=== PATIENT | male | born 1940 | race Caucasian/White ===

== ENCOUNTER 2021-01-11 08:00 | Inpatient (IN) | payer OTHER ==
[~2021-01-11] VITALS: Ht 177.8 cm; Wt 81.6 kg
[2021-01-11 10:13] LABS: BASOPHILS % (AUTO) 0.5 % (0.0-5.0); HEMATOCRIT 39.4 % (42-54); LYMPHOCYTES % (AUTO) 13.1 % (21.0-51.0); MEAN CORPUSCULAR HEMOGLOBIN 30.7 pg (27.0-33.0); MEAN CORPUSCULAR HGB CONC 32.2 g/dL (32.0-36.0); MEAN CORPUSCULAR VOLUME 95.2 fL (79-99); MONOCYTES % (AUTO) 10.6 % (3.0-13.0); NEUTROPHILS % (AUTO) 72.3 % (40.0-77.0); PLATELET COUNT (AUTO) 307 K/uL (130-400); RED BLOOD CELL COUNT(AUTO) 4.14 MIL/uL (4.50-6.20); WHITE BLOOD COUNT (AUTO) 7.6 K/uL (4.8-10.8)
[2021-01-11 10:25] LABS: INR 1.1 (0.85-1.15); PROTHROMBIN TIME 11.9 SEC (9.6-11.6)
[2021-01-11 15:23] VITALS: BP 138/91
[2021-01-11] MEDS ORDERED: LISI5TAB21 PO (16:06)
[2021-01-11] MEDS ORDERED: [UNRECOGNIZED DRUG - OTHER] SQ (16:06)
[2021-01-11] MEDS ORDERED: GABA600T10 PO (16:06)
[2021-01-11] MEDS ORDERED: LEVO5TAB13 PO (16:06)
[2021-01-11] MEDS ORDERED: OMEP40CA21 PO (16:06)
[2021-01-11] MEDS ORDERED: ATOR-2 PO (16:06)
[2021-01-11] MEDS ORDERED: LEVO125C4 PO (16:06)
[2021-01-11] MEDS ORDERED: DEXT1DRO8 OP (16:06)
[2021-01-11] MEDS ORDERED: METF-446 PO (16:06)
[2021-01-11] MEDS ORDERED: [UNRECOGNIZED DRUG - OTHER] TP (16:06)
[2021-01-11] MEDS ORDERED: FLUT16H NASAL (16:06)
[2021-01-14] VITALS (20 sets, daily range): BP systolic 108–137; BP diastolic 61–96
[2021-01-14] MEDS ORDERED: 0.9%NACL 1000ML 1,000 ML IV ONE (09:49)
[2021-01-14] MEDS: CEFAZOLIN SODIUM 1 GM VIAL IVP SCH ×3 (10:39→19:14)
[2021-01-14] MEDS ORDERED: CEFAZOLIN SODIUM 1 GM VIAL ONE (11:15)
[2021-01-14] MEDS ORDERED: TRANEXAMIC ACID 1000MG/10ML ONE ×2 (11:15→15:29)
[2021-01-14] MEDS ORDERED: MIDAZOLAM HCL 1 MG/ML 2ML VIAL ONE (11:53)
[2021-01-14] MEDS ORDERED: PROPOFOL 10 MG/ML 20ML VIAL IV ONE (11:53)
[2021-01-14] MEDS ORDERED: FENTANYL CITRATE PF 50 MCG/1 ML 2ML VIAL ONE ×2 (11:53→13:13)
[2021-01-14] MEDS ORDERED: LIDOCAINE HCL-MPF 1% 5ML AMP IJ ONE (11:53)
[2021-01-14] MEDS ORDERED: ROCURONIUM 10MG/1ML SYR 10 MG/ML ML ONE (11:53)
[2021-01-14] MEDS ORDERED: ROPIVACAINE 0.5% 5MG/ML 30ML IJ ONE (11:59)
[2021-01-14] MEDS ORDERED: EPHEDRINE SULFATE 50 MG/ML AMPULE ONE (12:10)
[2021-01-14] MEDS ORDERED: CEFAZOLIN SODIUM 1 GM VIAL IRRIG ONE (12:52)
[2021-01-14] MEDS ORDERED: KCL 20 MEQ ERTAB PO PRN (14:30)
[2021-01-14] MEDS ORDERED: DiphenhydrAMINE HCL 50 MG/ML VIAL IVP PRN (14:30)
[2021-01-14] MEDS: ACETAMINOPHEN 500 MG TABLET PO SCH ×2 (14:30→22:46)
[2021-01-14] MEDS ORDERED: KETOROLAC 15MG/ML VIAL (15MG/ML) IV PRN (14:30)
[2021-01-14] MEDS ORDERED: OXYCODONE HCL 5 MG TAB PO PRN ×2 (14:30)
[2021-01-14] MEDS ORDERED: LIDOCAINE HCL-MPF 1% 2ML VIAL IV PRN (14:30)
[2021-01-14] MEDS ORDERED: ONDANSETRON 4MG INJ IVP PRN (14:30)
[2021-01-14] MEDS ORDERED: TRAMADOL HCL 50 MG TABLET PO PRN (14:30)
[2021-01-14] MEDS ORDERED: POTASSIUM CHLORIDE 10% ELIXIR 20 MEQ/15 ML UDCUP PO PRN (14:30)
[2021-01-14] MEDS ORDERED: 0.9%NACL 1000ML 1,000 ML IV SCH (14:30)
[2021-01-14] MEDS ORDERED: FERROUS FUMARATE 324 MG TABLET PO PRN (14:30)
[2021-01-14] MEDS ORDERED: POTASSIUM CHLORIDE 20MEQ/100ML 100 ML IV PRN (14:30)
[2021-01-14] MEDS ORDERED: MEPERIDINE-PF 25 MG/ML SYG ONE ×2 (14:51→15:12)
[2021-01-14] MEDS: ARTIFICAL TEARS SOL 15 ML OP SCH ×2 (17:00→20:27)
[2021-01-14] MEDS: INSULIN HUMULIN R 100 UNIT/ML 3ML SQ SCH ×2 (17:25→20:39)
[2021-01-14] MEDS: METFORMIN HCL 500 MG TABLET PO SCH (17:46)
[2021-01-14] MEDS: CELECOXIB 200 MG CAP PO SCH (20:26)
[2021-01-14] MEDS: GABAPENTIN 300 MG CAPSULE PO SCH (20:26)
[2021-01-14] MEDS: ASPIRIN 81 MG EC TAB PO SCH (20:26)
[2021-01-14] MEDS: INSULIN GLARGINE 100 UNITS/ML 10 ML VIAL SQ SCH (20:27)
[2021-01-14] MEDS: FLUTICASONE PROPIONATE 50MCG/SPRAY 16 GM BOTTLE EN SCH (20:27)
[2021-01-15] MEDS: CEFAZOLIN SODIUM 1 GM VIAL IVP SCH (03:46)
[2021-01-15 03:55] VITALS: BP 102/54
[2021-01-15 04:13] LABS: HEMATOCRIT 31.1 % (42-54); MEAN CORPUSCULAR HEMOGLOBIN 30.4 pg (27.0-33.0); MEAN CORPUSCULAR HGB CONC 33.1 g/dL (32.0-36.0); MEAN CORPUSCULAR VOLUME 91.7 fL (79-99); RED BLOOD CELL COUNT(AUTO) 3.39 MIL/uL (4.50-6.20); RED CELL DISTRIBUTION WIDTH 13.7 % (11.0-15.5); WHITE BLOOD COUNT (AUTO) 9.6 K/uL (4.8-10.8)
[2021-01-15 04:20] LABS: CREATININE 0.7 mg/dL (0.5-1.5)
[2021-01-15] MEDS: LEVOTHYROXINE 125 MCG TABLET PO SCH (06:56)
[2021-01-15] MEDS: ACETAMINOPHEN 500 MG TABLET PO SCH ×2 (06:57→17:13)
[2021-01-15] MEDS: CALCIUM CARB 500MG PO PRN ×2 (06:57→17:55)
[2021-01-15] MEDS: INSULIN HUMULIN R 100 UNIT/ML 3ML SQ SCH ×4 (07:30→21:00)
[2021-01-15 08:00] VITALS: BP 129/82
[2021-01-15] MEDS: ATORVASTATIN 40 MG TABLET PO SCH (08:24)
[2021-01-15] MEDS: METFORMIN HCL 500 MG TABLET PO SCH ×3 (08:24→17:13)
[2021-01-15] MEDS: ASPIRIN 81 MG EC TAB PO SCH ×2 (08:25→21:26)
[2021-01-15] MEDS: CETIRIZINE HCL 5 MG TABLET PO SCH (08:25)
[2021-01-15] MEDS: PANTOPRAZOLE 40 MG TAB DR PO SCH (08:25)
[2021-01-15] MEDS: TAMSULOSIN HCL 0.4 MG CAP.ER.24H PO SCH (08:26)
[2021-01-15] MEDS: CELECOXIB 200 MG CAP PO SCH ×2 (08:26→21:26)
[2021-01-15] MEDS: POLYETHYLENE GLYCOL 3350 17 GM POWD.PACK PO SCH (08:26)
[2021-01-15] MEDS: GABAPENTIN 300 MG CAPSULE PO SCH ×3 (08:30→21:26)
[2021-01-15] MEDS: ARTIFICAL TEARS SOL 15 ML OP SCH ×4 (08:32→21:38)
[2021-01-15] MEDS: LISINOPRIL 5 MG TABLET PO SCH (08:32)
[2021-01-15] MEDS: APPL TP SCH (08:32)
[2021-01-15 11:33] VITALS: BP 94/55
[2021-01-15 16:00] VITALS: BP 133/78
[2021-01-15 19:58] VITALS: BP 134/72
[2021-01-15] MEDS: INSULIN GLARGINE 100 UNITS/ML 10 ML VIAL SQ SCH (21:27)
[2021-01-15] MEDS: FLUTICASONE PROPIONATE 50MCG/SPRAY 16 GM BOTTLE EN SCH (21:38)
[2021-01-15 23:34] VITALS: BP 139/78
[2021-01-16] MEDS: ACETAMINOPHEN 500 MG TABLET PO SCH ×2 (01:14→06:30)
[2021-01-16 03:40] VITALS: BP 118/80
[2021-01-16] MEDS: LEVOTHYROXINE 125 MCG TABLET PO SCH (06:33)
[2021-01-16] MEDS: INSULIN HUMULIN R 100 UNIT/ML 3ML SQ SCH ×2 (06:41→11:30)
[2021-01-16] MEDS: APPL TP SCH (07:21)
[2021-01-16] MEDS: TAMSULOSIN HCL 0.4 MG CAP.ER.24H PO SCH (07:49)
[2021-01-16] MEDS: ATORVASTATIN 40 MG TABLET PO SCH (07:49)
[2021-01-16] MEDS: METFORMIN HCL 500 MG TABLET PO SCH ×2 (07:49→13:10)
[2021-01-16] MEDS: PANTOPRAZOLE 40 MG TAB DR PO SCH (07:49)
[2021-01-16] MEDS: CETIRIZINE HCL 5 MG TABLET PO SCH (07:49)
[2021-01-16] MEDS: CELECOXIB 200 MG CAP PO SCH (07:49)
[2021-01-16] MEDS: ASPIRIN 81 MG EC TAB PO SCH (07:50)
[2021-01-16] MEDS: ARTIFICAL TEARS SOL 15 ML OP SCH ×2 (07:50→13:00)
[2021-01-16] MEDS: POLYETHYLENE GLYCOL 3350 17 GM POWD.PACK PO SCH (07:50)
[2021-01-16] MEDS: GABAPENTIN 300 MG CAPSULE PO SCH (07:52)
[2021-01-16 08:00] VITALS: BP 127/75
[2021-01-16 10:43] VITALS: BP 118/75
[2021-01-16] MEDS ORDERED: HYDR-4060 PO (12:24)
[2021-01-16] MEDS ORDERED: AEC81 PO (12:24)
[2021-01-16] MEDS: LISINOPRIL 5 MG TABLET PO SCH (13:09)
[2021-01-17] MEDS ORDERED: BISACODYL 10 MG SUPP.RECT RC PRN (14:30)
[2021-01-18] MEDS ORDERED: HYDROCODONE/ACETAMINOPHEN 5/325 MG TAB PO PRN (19:00)
== END 2021-01-16 16:12 | disposition home health service (06) | DRG 470 ==
LOC: DAHIP 01-14 08:49 → 4BH 01-14 15:50
PROVIDERS: ADMIT Orthopaedic Surgery; ATTEND Orthopaedic Surgery
PROC: 0SRC0J9 Replacement of Right Knee Joint with Synthetic Substitute, Cemented, Open Approach (ICD-10-PCS; principal; 2021-01-14 11:48)
DX: M17.11 Unilateral primary osteoarthritis, right knee (principal); G89.29 Other chronic pain; M23.8X1 Other internal derangements of right knee; D64.9 Anemia, unspecified; Z20.822 Contact with and (suspected) exposure to COVID-19; E11.9 Type 2 diabetes mellitus without complications; I10 Essential (primary) hypertension; E78.00 Pure hypercholesterolemia, unspecified; M48.02 Spinal stenosis, cervical region; Z85.118 Personal history of other malignant neoplasm of bronchus and lung; Z85.850 Personal history of malignant neoplasm of thyroid; Z85.01 Personal history of malignant neoplasm of esophagus; Z87.891 Personal history of nicotine dependence
CPT/HCPCS: 36415; 80048; 82948; 85025; 85027; 85610; 87635; 87641; 88305; 88311; 93005; 97039; G0378; J0690; J1815; J1885; J2175; J2250; J2704; J2795; J3010; J3490; J7030

== ENCOUNTER 2021-01-18 23:17 | Inpatient (IN) | payer OTHER ==
[~2021-01-18] VITALS: Ht 172.7 cm; Wt 84.8 kg
[~2021-01-18 23:17] MED LIST: AEC81 PO; ATOR-2 PO; DEXT1DRO8 OP; FLUT16H NASAL; GABA600T10 PO; HYDR-4060 PO; LEVO125C4 PO; LEVO5TAB13 PO; LISI5TAB21 PO; METF-446 PO; OMEP40CA21 PO; [UNRECOGNIZED DRUG - OTHER] SQ; [UNRECOGNIZED DRUG - OTHER] TP
[2021-01-18 23:30] VITALS: BP 133/76
[2021-01-19] MEDS ORDERED: DILTIAZEM 25MG INJ IVP ONE (02:55)
[2021-01-19] MEDS ORDERED: ZOSYN 3.375GM+NS 50ML 50 ML ONE (02:59)
[2021-01-19] MEDS ORDERED: MORPHINE 2 MG SYG IV PRN (03:00)
[2021-01-19] MEDS ORDERED: DILTIAZEM 50MG VIAL IV SCH (03:00)
[2021-01-19] MEDS ORDERED: MORPHINE 4 MG SYG IV PRN (03:00)
[2021-01-19] MEDS: ZOSYN 3.375GM+NS 50ML 50 ML IV SCH ×2 (03:01→14:57)
[2021-01-19 03:49] LABS: APPEARANCE,URINE Clear (CLEAR); BILIRUBIN,URINE Negative (NEGATIVE); COLOR,URINE Yellow (YELLOW); GLUCOSE, URINE (UA) Negative (NEGATIVE); KETONES,URINE 40 mg/dL (NEGATIVE); LEUKOCYTE ESTERASE ,URINE Negative (NEGATIVE); NITRATE,URINE Negative (NEGATIVE); OCCULT BLOOD,URINE Negative (NEGATIVE); PH,URINE 5.5 (5.0-8.0); PROTEIN,URINE Negative (NEGATIVE)
[2021-01-19 03:58] VITALS: BP 128/69
[2021-01-19 04:03] LABS: BACTERIA,URINE None Seen /HPF (None Seen); RBC,URINE None Seen /HPF (0-1); WBC,URINE 0-1 /HPF (0-1)
[2021-01-19 04:04] LABS: SQUAMOUS EPITHELIAL CELL,UR None Seen /HPF (0-2)
[2021-01-19 04:08] LABS: BASOPHILS % (AUTO) 0.4 % (0.0-5.0); EOSINOPHILS % (AUTO) 1.9 % (0.0-8.0); HEMATOCRIT 29.3 % (42-54); LYMPHOCYTES % (AUTO) 10.3 % (21.0-51.0); MEAN CORPUSCULAR HEMOGLOBIN 30.2 pg (27.0-33.0); MEAN CORPUSCULAR HGB CONC 32.8 g/dL (32.0-36.0); MEAN CORPUSCULAR VOLUME 92.1 fL (79-99); MONOCYTES % (AUTO) 13.8 % (3.0-13.0); PLATELET COUNT (AUTO) 277 K/uL (130-400); RED BLOOD CELL COUNT(AUTO) 3.18 MIL/uL (4.50-6.20); RED CELL DISTRIBUTION WIDTH 13.6 % (11.0-15.5); WHITE BLOOD COUNT (AUTO) 7.2 K/uL (4.8-10.8)
[2021-01-19 04:16] LABS: HEMOGLOBIN A1C 6.4 % (4.0-6.0)
[2021-01-19 04:26] LABS: INR 1.12 (0.85-1.15); PROTHROMBIN TIME 12.1 SEC (9.6-11.6)
[2021-01-19 04:27] LABS: PARTIAL THROMBOPLASTIN TIME 30.5 SEC (26.3-35.5)
[2021-01-19 04:30] LABS: ALBUMIN 2.8 g/dL (3.5-5.0); BILIRUBIN,TOTAL 1.3 mg/dL (0.2-1.0); CREATININE 0.6 mg/dL (0.5-1.5); MAGNESIUM 1.5 mg/dL (1.80-2.40); PHOSPHORUS 3.7 mg/dL (2.5-4.9); POTASSIUM 3.6 mmol/L (3.5-5.1); TOTAL PROTEIN, SERUM 6.3 g/dL (6.0-8.3)
[2021-01-19] MEDS ORDERED: MAGNESIUM 2GM PREMIX 50ML 50 ML IV ONE (04:34)
[2021-01-19] MEDS: INSULIN HUMULIN R 100 UNIT/ML 3ML SQ SCH ×4 (04:35→20:31)
[2021-01-19] MEDS: MAGNESIUM 2GM PREMIX 50ML 50 ML IV PRN (04:36)
[2021-01-19] MEDS ORDERED: KCL 20 MEQ ERTAB PO ONE (05:54)
[2021-01-19] MEDS ORDERED: POTASSIUM CHLORIDE 20MEQ/100ML 100 ML IV PRN (06:00)
[2021-01-19] MEDS ORDERED: LIDOCAINE HCL-MPF 1% 2ML VIAL IV PRN (06:00)
[2021-01-19] MEDS ORDERED: POTASSIUM CHLORIDE 10% ELIXIR 20 MEQ/15 ML UDCUP PO PRN (06:00)
[2021-01-19] MEDS: LEVOTHYROXINE 125 MCG TABLET PO SCH (06:49)
[2021-01-19 08:00] VITALS: BP 126/59
[2021-01-19] MEDS: FAMOTIDINE 20MG TAB PO SCH (08:09)
[2021-01-19] MEDS: APIXABAN 5 MG TABLET PO SCH ×2 (08:09→19:54)
[2021-01-19] MEDS: METOPROLOL TARTRATE 25 MG TAB PO SCH ×2 (08:09→19:54)
[2021-01-19] MEDS: ATORVASTATIN 40 MG TABLET PO SCH (08:09)
[2021-01-19] MEDS: CETIRIZINE HCL 5 MG TABLET PO SCH (08:09)
[2021-01-19] MEDS: GABAPENTIN 300 MG CAPSULE PO SCH ×2 (08:10→14:00)
[2021-01-19] MEDS: LISINOPRIL 5 MG TABLET PO SCH (08:10)
[2021-01-19] MEDS: ARTIFICAL TEARS SOL 15 ML OP SCH ×4 (09:00→19:54)
[2021-01-19] MEDS ORDERED: ASPIRIN 81 MG EC TAB PO SCH (09:00)
[2021-01-19 12:03] VITALS: BP 125/92
[2021-01-19 16:00] VITALS: BP 112/71
[2021-01-19] MEDS ORDERED: IOHEXOL 350 MG/ML 100ML INFUS..BTL IV ONE (16:03)
[2021-01-19] MEDS: FLUTICASONE PROPIONATE 50MCG/SPRAY 16 GM BOTTLE EN SCH (19:54)
[2021-01-19] MEDS: KCL 20 MEQ ERTAB PO PRN (19:55)
[2021-01-19 20:33] VITALS: BP 149/72
[2021-01-19 23:41] VITALS: BP 121/77
[2021-01-20] MEDS: HYDROCODONE/ACETAMINOPHEN 5/325 MG TAB PO PRN (03:00)
[2021-01-20 03:40] VITALS: BP 125/79
[2021-01-20 04:43] LABS: BASOPHILS % (AUTO) 0.4 % (0.0-5.0); HEMATOCRIT 28.4 % (42-54); LYMPHOCYTES % (AUTO) 8.9 % (21.0-51.0); MEAN CORPUSCULAR HEMOGLOBIN 30.7 pg (27.0-33.0); MEAN CORPUSCULAR HGB CONC 33.5 g/dL (32.0-36.0); MEAN CORPUSCULAR VOLUME 91.9 fL (79-99); MONOCYTES % (AUTO) 12.5 % (3.0-13.0); NEUTROPHILS % (AUTO) 74.8 % (40.0-77.0); PLATELET COUNT (AUTO) 255 K/uL (130-400); RED BLOOD CELL COUNT(AUTO) 3.09 MIL/uL (4.50-6.20); RED CELL DISTRIBUTION WIDTH 13.6 % (11.0-15.5); WHITE BLOOD COUNT (AUTO) 7.7 K/uL (4.8-10.8)
[2021-01-20 04:58] LABS: CREATININE 0.7 mg/dL (0.5-1.5); MAGNESIUM 1.6 mg/dL (1.80-2.40); POTASSIUM 3.7 mmol/L (3.5-5.1)
[2021-01-20] MEDS: INSULIN HUMULIN R 100 UNIT/ML 3ML SQ SCH ×4 (05:27→22:57)
[2021-01-20] MEDS: MAGNESIUM 2GM PREMIX 50ML 50 ML IV PRN (06:28)
[2021-01-20] MEDS: LEVOTHYROXINE 125 MCG TABLET PO SCH (06:28)
[2021-01-20] MEDS: KCL 20 MEQ ERTAB PO PRN ×2 (06:28→10:26)
[2021-01-20 08:00] VITALS: BP 141/91
[2021-01-20] MEDS: METOPROLOL TARTRATE 25 MG TAB PO SCH (10:24)
[2021-01-20] MEDS: FAMOTIDINE 20MG TAB PO SCH (10:24)
[2021-01-20] MEDS: ATORVASTATIN 40 MG TABLET PO SCH (10:24)
[2021-01-20] MEDS: APIXABAN 5 MG TABLET PO SCH ×2 (10:24→22:48)
[2021-01-20] MEDS: LISINOPRIL 5 MG TABLET PO SCH (10:25)
[2021-01-20] MEDS: CETIRIZINE HCL 5 MG TABLET PO SCH (10:25)
[2021-01-20] MEDS: ARTIFICAL TEARS SOL 15 ML OP SCH ×4 (10:25→22:50)
[2021-01-20 12:00] VITALS: BP 125/89
[2021-01-20] MEDS ORDERED: METOPROLOL TARTRATE 25 MG TAB PO SCH (12:30)
[2021-01-20 16:00] VITALS: BP 136/67
[2021-01-20 20:11] VITALS: BP 123/67
[2021-01-20] MEDS: METOPROLOL TARTRATE 50 MG TAB PO SCH (22:48)
[2021-01-20] MEDS: FLUTICASONE PROPIONATE 50MCG/SPRAY 16 GM BOTTLE EN SCH (22:49)
[2021-01-21 00:01] VITALS: BP 127/74
[2021-01-21] MEDS: HYDROCODONE/ACETAMINOPHEN 5/325 MG TAB PO PRN (02:32)
[2021-01-21 04:04] VITALS: BP 121/71
[2021-01-21] MEDS: INSULIN HUMULIN R 100 UNIT/ML 3ML SQ SCH ×3 (06:04→16:30)
[2021-01-21] MEDS: LEVOTHYROXINE 125 MCG TABLET PO SCH (06:43)
[2021-01-21 07:30] VITALS: BP 141/81
[2021-01-21] MEDS: CETIRIZINE HCL 5 MG TABLET PO SCH (09:56)
[2021-01-21] MEDS: LISINOPRIL 5 MG TABLET PO SCH (09:57)
[2021-01-21] MEDS: ATORVASTATIN 40 MG TABLET PO SCH (09:57)
[2021-01-21] MEDS: METOPROLOL TARTRATE 50 MG TAB PO SCH (09:57)
[2021-01-21] MEDS: FAMOTIDINE 20MG TAB PO SCH (09:57)
[2021-01-21] MEDS: ARTIFICAL TEARS SOL 15 ML OP SCH ×3 (09:58→16:37)
[2021-01-21] MEDS: APIXABAN 5 MG TABLET PO SCH (09:58)
[2021-01-21 11:00] VITALS: BP 121/85
[2021-01-21] MEDS ORDERED: APIX5TAB PO (13:07)
[2021-01-21] MEDS ORDERED: METO50 PO (13:07)
[2021-01-21 16:00] VITALS: BP 121/83
== END 2021-01-21 18:50 | DRG 560 ==
LOC: OBSVTOIN 23:17 → 4AH 23:17
PROVIDERS: ADMIT Family Medicine; ATTEND Family Medicine
DX: T84.53XA Infection and inflammatory reaction due to internal right knee prosthesis, initial encounter (principal); D68.69 Other thrombophilia; M25.461 Effusion, right knee; I48.91 Unspecified atrial fibrillation; E11.9 Type 2 diabetes mellitus without complications; E78.5 Hyperlipidemia, unspecified; I10 Essential (primary) hypertension; E03.9 Hypothyroidism, unspecified; K44.9 Diaphragmatic hernia without obstruction or gangrene; I20.9 Angina pectoris, unspecified; R91.8 Other nonspecific abnormal finding of lung field; J43.9 Emphysema, unspecified; K21.9 Gastro-esophageal reflux disease without esophagitis; Z60.2 Problems related to living alone; Z96.651 Presence of right artificial knee joint; Y83.1 Surgical operation with implant of artificial internal device as the cause of abnormal reaction of the patient, or of later complication, without mention of misadventure at the time of the procedure; Y92.89 Other specified places as the place of occurrence of the external cause; Z98.49 Cataract extraction status, unspecified eye; Z79.01 Long term (current) use of anticoagulants; Z83.3 Family history of diabetes mellitus; Z80.3 Family history of malignant neoplasm of breast; Z87.891 Personal history of nicotine dependence
CPT/HCPCS: 36415; 71275; 73700; 80048; 80053; 81001; 82550; 82948; 83036; 83605; 83735; 84100; 84145; 84443; 84484; 85025; 85610; 85730; 86850; 86900; 86901; 87040; 93005; 93306; 93356; 97039; G0378; J1815; J2543; J3475; J3490; Q9967